=== PATIENT | female | born 1950 ===

== ENCOUNTER 2023-07-13 04:44 | Inpatient (IN) | payer OTHER ==
[~2023-07-13] VITALS: Ht 165.1 cm; Wt 99.4 kg
[~2023-07-13 04:44] MED LIST: APAP325 MG PO; BISACODYL10 MG R; BUPROPION HCL150 M3 PO; CYCLOBENZAPRINE10 MG PO; CYMBALTA60 MG PO; DICLOFENAC SOD75 MG PO; FLEET MINERAL133 ML PO; HYDROCHLOROTHIA25 M1 PO; IRON325 M1 PO; LEVOTHYROXINE25 MCG PO; LIPITOR40 MG PO; MELATONIN5 M1 SL; MILK OF MA400 MG/53 PO; MIRALAX119 GM PO; MYRBETRIQ25 M1 PO; NIFEDIPINE ER60 M1 PO; NORVASC5 MG PO; OMEPRAZOLE MAGN20 MG PO; RENAL CAPS SOFTG1 MG PO; VITAMIN B-121000 MC2 PO; ZESTRIL40 MG PO
[2023-07-13] MEDS ORDERED: LORazepam 1 MG TAB PO PRN (04:55)
[2023-07-13] MEDS ORDERED: Water, Sterile 10 ML VIAL IM PRN (04:55)
[2023-07-13] MEDS ORDERED: Ziprasidone Mesylate 20 MG VIAL IM PRN (04:55)
[2023-07-13] MEDS ORDERED: MG-AL HYDROXIDE/SIMETICONE 30 ML UDC PO PRN (05:00)
[2023-07-13] MEDS ORDERED: Magnesium Hydroxide 30 ML UDC PO PRN (05:00)
[2023-07-13] MEDS ORDERED: ACETAMINOPHEN 325 MG TAB PO PRN (05:00)
[2023-07-13] MEDS ORDERED: Menthol/Zinc Oxide 4 GM THIN T PRN (05:00)
[2023-07-13] MEDS ORDERED: Rivastigmine Tartrate 4.6 MG/24 HR PATCH T SCH (09:00)
[2023-07-13] MEDS ORDERED: DIVALPROEX SODIUM 125 MG CAP PO SCH (09:00)
[2023-07-13 11:47] VITALS: BP 118/50
[2023-07-13] MEDS ORDERED: Cyclobenzaprine Hydrochlorid 10 MG TAB PO PRN (17:20)
[2023-07-13] MEDS ORDERED: DICLOFENAC SODIUM 75 MG TAB PO PRN (17:20)
[2023-07-13 20:00] VITALS: BP 132/97
[2023-07-13] MEDS ORDERED: Memantine Hydrochloride 5 MG TAB PO SCH (21:00)
[2023-07-13] MEDS ORDERED: Mirtazapine 15 MG TAB.RAPDIS PO SCH (21:00)
[2023-07-13] MEDS ORDERED: NYSTATIN 15 GM BOT T SCH (21:00)
[2023-07-13] MEDS ORDERED: SILVER SULFADIAZINE 25 GM TUBE T SCH (21:00)
[2023-07-13] MEDS ORDERED: ATORVASTATIN CALCIUM 40 MG TABLET PO SCH (21:00)
[2023-07-14 07:36] LABS: BASO % 0.4 % (0.0-1.0); EOS # 0.3 10*3/uL (0.0-0.4); EOS % 4.4 % (1.0-4.0); HEMATOCRIT 30.5 % (37.0-47.0); LYMPH # 1.8 10*3/uL (1.3-4.4); LYMPH % 23.9 % (27.0-41.0); MEAN CORPUSCULAR HGB 29.8 pg (27.0-31.0); MEAN CORPUSCULAR HGB CONC 29.5 g/dl (33.0-37.0); MEAN PLATELET VOLUME 10.9 fl (9.6-12.3); MONO # 0.5 10*3/uL (0.1-1.0); MONO % 6.4 % (3.0-9.0); NEUT # 4.8 10*3/uL (2.3-7.9); NEUT % 64.4 % (47.0-73.0); PLATELET COUNT AUTOMATED 354 10*3/uL (130-400); RED BLOOD COUNT 3.02 10*6/uL (4.10-5.10); RED CELL DISTRI WIDTH 21.4 % (0-14.5); WHITE BLOOD COUNT 7.5 10*3/uL (4.8-10.8)
[2023-07-14 08:01] LABS: ALKALINE PHOSPHATASE 67 U/L (46-116); BUN 10 mg/dl (9-23); CHLORIDE 113 mmol/L (98-107); CHOLESTEROL 113 mg/dL (<200); LDL CHOLESTEROL 72 mg/dL (9-159); POTASSIUM 4.5 mmol/L (3.4-5.1); TOTAL PROTEIN 5.5 gm/dL (6.0-8.0); TRIGLYCERIDES 87 mg/dl (<150); VALPROIC ACID (DEPAKENE) 35.8 ug/ml (50-100)
[2023-07-14 08:07] LABS: SGPT/ALT < 7 U/L (5-49)
[2023-07-14 08:24] LABS: VITAMIN D, 25-HYDROXY 12.6 ng/mL (30-100)
[2023-07-14 08:25] VITALS: BP 146/60
[2023-07-14] MEDS ORDERED: amLODIPine besylate 5 MG TAB PO SCH (09:00)
[2023-07-14] MEDS ORDERED: OMEPRAZOLE 20 MG CAP PO SCH (09:00)
[2023-07-14] MEDS ORDERED: LISINOPRIL 40 MG TAB PO SCH (09:00)
[2023-07-14] MEDS ORDERED: HYDROCHLOROTHIAZIDE 25 MG TAB PO SCH (09:00)
[2023-07-14] MEDS ORDERED: CYANOCOBALAMIN 500 MCG TAB PO SCH (09:00)
[2023-07-14] MEDS ORDERED: MYRBETRIQ 25 MG PO SCH (10:00)
[2023-07-14] MEDS ORDERED: DICLOFENAC SODIUM 75 MG TAB PO PRN (11:39)
[2023-07-14 18:26] LABS: BILIRUBIN Negative (Negative); BLOOD 2+ (Negative); CLARITY Turbid (Clear); COLOR Yellow (Yellow); GLUCOSE Negative (Negative); KETONE Trace (Negative); LEUKO ESTERASE 3+ (Negative); NITRITE Negative (Negative); PH 5.5 (4.5-8.0); SPECIFIC GRAVITY 1.015 (1.001-1.030)
[2023-07-14 18:48] LABS: BACTERIA 1+; WBC TNTC wbc/hpf (0-5)
[2023-07-14 20:00] VITALS: BP 136/60
[2023-07-14] MEDS ORDERED: CEPHALEXIN 500 MG CAP PO SCH (21:00)
[2023-07-14] MEDS ORDERED: RISPERIDONE 0.5 MG TAB PO SCH (21:00)
[2023-07-15 07:46] VITALS: BP 120/54
[2023-07-15] MEDS ORDERED: Rivastigmine Tartrate 9.5 MG/24 HR PATCH T SCH (09:00)
[2023-07-15] MEDS ORDERED: RISPERIDONE 0.5 MG TAB PO SCH (09:00)
[2023-07-15] MEDS ORDERED: Cholecalciferol 5,000 IU CAP (125 MCG) PO SCH (09:00)
[2023-07-15] MEDS ORDERED: Ceftriaxone Sodium 1 GM in SYRINGE INFUSION 10 ML IV SCH (10:00)
[2023-07-15 12:11] LABS: ABG BASE EXCESS -4.3 mmol/L (-2.0-2.0); ARTERIAL BLOOD GAS PH 7.387 (7.35-7.45)
[2023-07-15 12:51] LABS: BASO % 0.5 % (0.0-1.0); EOS # 0.2 10*3/uL (0.0-0.4); EOS % 2.1 % (1.0-4.0); HEMATOCRIT 33.3 % (37.0-47.0); LYMPH # 1.7 10*3/uL (1.3-4.4); LYMPH % 21.4 % (27.0-41.0); MEAN CORPUSCULAR HGB 30.4 pg (27.0-31.0); MEAN CORPUSCULAR HGB CONC 28.8 g/dl (33.0-37.0); MEAN PLATELET VOLUME 10.9 fl (9.6-12.3); MONO # 0.5 10*3/uL (0.1-1.0); MONO % 6.6 % (3.0-9.0); NEUT # 5.4 10*3/uL (2.3-7.9); NEUT % 68.9 % (47.0-73.0); PLATELET COUNT AUTOMATED 311 10*3/uL (130-400); RED BLOOD COUNT 3.16 10*6/uL (4.10-5.10); RED CELL DISTRI WIDTH 21.1 % (0-14.5); WHITE BLOOD COUNT 7.8 10*3/uL (4.8-10.8)
[2023-07-15 12:53] LABS: MEAN CELL VOLUME 105.4 fl (81.0-99.0)
[2023-07-15 13:05] LABS: ALKALINE PHOSPHATASE 69 U/L (46-116); BUN 8 mg/dl (9-23); CHLORIDE 112 mmol/L (98-107); POTASSIUM 4.6 mmol/L (3.4-5.1); TOTAL PROTEIN 5.7 gm/dL (6.0-8.0)
[2023-07-15 13:06] LABS: SGPT/ALT < 7 U/L (5-49)
[2023-07-15 20:00] VITALS: BP 109/79
[2023-07-15] MEDS ORDERED: BENZOCAINE 20% 9 GM TUBE T SCH (22:00)
[2023-07-16 07:42] VITALS: BP 122/86
[2023-07-16] MEDS ORDERED: SODIUM CHLORIDE 0.9% 1,000 ML IV ONE (09:30)
[2023-07-16 20:00] VITALS: BP 114/60
[2023-07-16] MEDS ORDERED: Memantine Hydrochloride 5 MG TAB PO SCH (21:00)
[2023-07-16] MEDS ORDERED: RISPERIDONE 1 MG TAB PO SCH (21:00)
[2023-07-17 06:52] LABS: BASO % 0.5 % (0.0-1.0); EOS # 0.2 10*3/uL (0.0-0.4); EOS % 3.3 % (1.0-4.0); HEMATOCRIT 29.2 % (37.0-47.0); LYMPH # 1.6 10*3/uL (1.3-4.4); LYMPH % 24.7 % (27.0-41.0); MEAN CELL VOLUME 104.7 fl (81.0-99.0); MEAN CORPUSCULAR HGB 30.1 pg (27.0-31.0); MEAN CORPUSCULAR HGB CONC 28.8 g/dl (33.0-37.0); MEAN PLATELET VOLUME 10.8 fl (9.6-12.3); MONO # 0.5 10*3/uL (0.1-1.0); MONO % 7.1 % (3.0-9.0); NEUT % 63.9 % (47.0-73.0); PLATELET COUNT AUTOMATED 270 10*3/uL (130-400); RED BLOOD COUNT 2.79 10*6/uL (4.10-5.10); RED CELL DISTRI WIDTH 20.6 % (0-14.5); WHITE BLOOD COUNT 6.3 10*3/uL (4.8-10.8)
[2023-07-17 07:12] LABS: BUN 11 mg/dl (9-23); CHLORIDE 112 mmol/L (98-107); POTASSIUM 4.4 mmol/L (3.4-5.1)
[2023-07-17 08:00] VITALS: BP 124/49
[2023-07-17] MEDS ORDERED: RISPERIDONE 0.5 MG TAB PO SCH (09:00)
[2023-07-17] MEDS ORDERED: FOAM BANDAGE 5X5 T ONE (09:18)
[2023-07-17] MEDS ORDERED: NIFEdipine 30 MG TAB PO SCH (10:00)
[2023-07-17] MEDS ORDERED: Ceftriaxone Sodium 1 GM in SYRINGE INFUSION 10 ML IV SCH (10:00)
[2023-07-17] MEDS ORDERED: Polyethylene Glycol 3350 17 GM PACKET PO PRN (10:00)
[2023-07-17] MEDS ORDERED: Cefepime Hydrochloride 2 GM in SODIUM CHLORIDE 0.9% 50 ML IV SCH (10:00)
[2023-07-17 20:00] VITALS: BP 111/47
[2023-07-18 07:01] LABS: BASO % 0.3 % (0.0-1.0); EOS # 0.1 10*3/uL (0.0-0.4); EOS % 2.2 % (1.0-4.0); HEMATOCRIT 28.9 % (37.0-47.0); LYMPH # 1.5 10*3/uL (1.3-4.4); LYMPH % 24.7 % (27.0-41.0); MEAN CORPUSCULAR HGB 29.9 pg (27.0-31.0); MEAN CORPUSCULAR HGB CONC 28.7 g/dl (33.0-37.0); MEAN PLATELET VOLUME 11.4 fl (9.6-12.3); MONO # 0.4 10*3/uL (0.1-1.0); MONO % 6.7 % (3.0-9.0); NEUT # 3.9 10*3/uL (2.3-7.9); NEUT % 65.4 % (47.0-73.0); PLATELET COUNT AUTOMATED 274 10*3/uL (130-400); RED BLOOD COUNT 2.78 10*6/uL (4.10-5.10); RED CELL DISTRI WIDTH 20.6 % (0-14.5)
[2023-07-18 07:22] LABS: ALKALINE PHOSPHATASE 60 U/L (46-116); BUN 13 mg/dl (9-23); CHLORIDE 110 mmol/L (98-107); POTASSIUM 4.4 mmol/L (3.4-5.1); TOTAL PROTEIN 5.1 gm/dL (6.0-8.0)
[2023-07-18 07:24] LABS: SGPT/ALT < 7 U/L (5-49)
[2023-07-18 08:06] VITALS: BP 109/53
[2023-07-18 20:00] VITALS: BP 96/45
[2023-07-18] MEDS ORDERED: RISPERIDONE 1 MG TAB PO SCH (21:00)
[2023-07-19 07:35] LABS: BUN 13 mg/dl (9-23); CHLORIDE 111 mmol/L (98-107); POTASSIUM 4.6 mmol/L (3.4-5.1)
[2023-07-19 08:00] VITALS: BP 111/64
[2023-07-19] MEDS ORDERED: Memantine Hydrochloride 10 MG TAB PO SCH (09:00)
[2023-07-19] MEDS ORDERED: RIVASTIGMINE 13.3 MG/24 HR TDM T SCH (09:00)
[2023-07-19 20:00] VITALS: BP 103/69
[2023-07-20 07:45] LABS: BUN 18 mg/dl (9-23); CHLORIDE 109 mmol/L (98-107); POTASSIUM 4.2 mmol/L (3.4-5.1)
[2023-07-20 08:00] VITALS: BP 124/47
[2023-07-20 08:05] VITALS: BP 102/58
[2023-07-20] MEDS ORDERED: QUETIAPINE FUMARATE 50 MG TAB PO SCH (09:00)
[2023-07-20 20:00] VITALS: BP 120/70
[2023-07-21 08:15] VITALS: BP 129/68
[2023-07-21] MEDS ORDERED: LISINOPRIL 20 MG TAB PO SCH (09:00)
[2023-07-21] MEDS ORDERED: GABAPENTIN 300 MG CAP PO PRN (18:55)
[2023-07-21 20:00] VITALS: BP 116/60
[2023-07-22 07:42] VITALS: BP 112/47
[2023-07-22 11:18] LABS: BASO % 0.4 % (0.0-1.0); EOS # 0.1 10*3/uL (0.0-0.4); EOS % 1.8 % (1.0-4.0); HEMATOCRIT 29.3 % (37.0-47.0); LYMPH # 1.2 10*3/uL (1.3-4.4); MEAN CELL VOLUME 103.2 fl (81.0-99.0); MEAN CORPUSCULAR HGB 30.3 pg (27.0-31.0); MEAN CORPUSCULAR HGB CONC 29.4 g/dl (33.0-37.0); MEAN PLATELET VOLUME 10.4 fl (9.6-12.3); MONO # 0.5 10*3/uL (0.1-1.0); MONO % 8.1 % (3.0-9.0); NEUT # 3.8 10*3/uL (2.3-7.9); NEUT % 67.8 % (47.0-73.0); PLATELET COUNT AUTOMATED 258 10*3/uL (130-400); RED BLOOD COUNT 2.84 10*6/uL (4.10-5.10); RED CELL DISTRI WIDTH 20.1 % (0-14.5); WHITE BLOOD COUNT 5.6 10*3/uL (4.8-10.8)
[2023-07-22 11:35] LABS: ABG BASE EXCESS -2.8 mmol/L (-2.0-2.0); ARTERIAL BLOOD GAS PH 7.391 (7.35-7.45)
[2023-07-22 12:01] LABS: ALKALINE PHOSPHATASE 69 U/L (46-116); BUN 24 mg/dl (9-23); CHLORIDE 110 mmol/L (98-107); POTASSIUM 4.7 mmol/L (3.4-5.1); TOTAL PROTEIN 5.2 gm/dL (6.0-8.0)
[2023-07-22 12:06] LABS: SGPT/ALT < 7 U/L (5-49)
[2023-07-22 20:00] VITALS: BP 108/62
[2023-07-23 07:42] VITALS: BP 98/66
[2023-07-23] MEDS ORDERED: FUROSEMIDE 20 MG TAB PO SCH (09:00)
[2023-07-23] MEDS ORDERED: QUETIAPINE FUMA50 M1 PO (10:32)
[2023-07-23] MEDS ORDERED: MEMANTINE HCL10 MG PO (10:32)
[2023-07-23] MEDS ORDERED: RIVASTIGMINE1 EAC2 T (10:32)
[2023-07-23] MEDS ORDERED: Lidoderm 5% Patch T (10:32)
[2023-07-23] MEDS ORDERED: MIRTAZAPINE15 M1 PO (10:32)
[2023-07-23] MEDS ORDERED: PHARMASSURE V500 MCG PO (10:33)
[2023-07-23 20:00] VITALS: BP 112/78
[2023-07-24 07:18] LABS: POTASSIUM 4.8 mmol/L (3.4-5.1)
[2023-07-24] MEDS ORDERED: SODIUM CHLORIDE 0.9% 1,000 ML IV ONE (08:15)
[2023-07-24] MEDS ORDERED: LIDOCAINE 1 EA PATCH T SCH (09:00)
[2023-07-24 09:46] VITALS: BP 106/65
[2023-07-24 20:00] VITALS: BP 115/64
[2023-07-25 08:48] VITALS: BP 106/46
== END 2023-07-25 11:10 | DRG 885 ==
LOC: 3N 04:44
PROVIDERS: Family Medicine; Internal Medicine; Student in an Organized Health Care Education/Training Program; ADMIT Psychiatry & Neurology Psychiatry; ATTEND Psychiatry & Neurology Psychiatry
PROC: GZHZZZZ Group Psychotherapy (ICD-10-PCS; principal; 2023-07-13)
PROC: GZ51ZZZ Individual Psychotherapy, Behavioral (ICD-10-PCS; 2023-07-13)
DX: F33.3 Major depressive disorder, recurrent, severe with psychotic symptoms (principal); A41.9 Sepsis, unspecified organism; L89.323 Pressure ulcer of left buttock, stage 3; L89.313 Pressure ulcer of right buttock, stage 3; F23 Brief psychotic disorder; N39.0 Urinary tract infection, site not specified; L89.610 Pressure ulcer of right heel, unstageable; L24.A0 Irritant contact dermatitis due to friction or contact with body fluids, unspecified; E78.5 Hyperlipidemia, unspecified; I10 Essential (primary) hypertension; D50.9 Iron deficiency anemia, unspecified; E53.8 Deficiency of other specified B group vitamins; E03.9 Hypothyroidism, unspecified; E66.01 Morbid (severe) obesity due to excess calories; J44.9 Chronic obstructive pulmonary disease, unspecified; E55.9 Vitamin D deficiency, unspecified; B96.5 Pseudomonas (aeruginosa) (mallei) (pseudomallei) as the cause of diseases classified elsewhere; L89.896 Pressure-induced deep tissue damage of other site; I73.9 Peripheral vascular disease, unspecified; G30.9 Alzheimer's disease, unspecified; F02.80 Dementia in other diseases classified elsewhere, unspecified severity, without behavioral disturbance, psychotic disturbance, mood disturbance, and anxiety; K59.00 Constipation, unspecified; Z87.891 Personal history of nicotine dependence; Z90.710 Acquired absence of both cervix and uterus; Z79.1 Long term (current) use of non-steroidal anti-inflammatories (NSAID); Z79.899 Other long term (current) drug therapy; Z68.36 Body mass index [BMI] 36.0-36.9, adult